=== PATIENT | male | born 1990 | race Caucasian/White ===

== ENCOUNTER 2018-09-24 23:34 | Emergency (ER) | payer SELFPAY ==
[~2018-09-24] VITALS: Ht 172.7 cm; Wt 77.3 kg
[2018-09-25 00:49] VITALS: BP 157/99
== END 2018-09-25 01:00 | disposition left against medical advice (07) ==
LOC: EMS 23:40
DX: R06.02 Shortness of breath (principal); Z53.21 Procedure and treatment not carried out due to patient leaving prior to being seen by health care provider